=== PATIENT | female | born 1960 | race American Indian/Alaskan Native ===

== ENCOUNTER 2017-04-13 22:07 | Emergency (ER) | payer SELFPAY ==
[2017-04-13 23:12] VITALS: BP 148/111
[2017-04-13] MEDS ORDERED: Bacitracin Oint 1 GM U/D Packet TOP ONE (23:17)
--- NOTE | 2017-04-14 00:05 | EDM.PDOC ---
ED HPI GENERAL MEDICAL PROBLEM - General Chief Complaint: Upper Extremity Injury/Pain Stated Complaint: CUT HAND Time Seen by Provider: 04/13/17 23:12 Source of Information: Reports: Patient History Limitations: Reports: No Limitations - History of Present Illness INITIAL COMMENTS - FREE TEXT/NARRATIVE: laceration to right hand; this is a 56 y/o female while at work this evening, was closing a oven door when she got cut on a thin strip of metal on the door. reports last TD 2 years ago Employer; [employer], location; [facility]. 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 Treatments (applied pressure and place on a dressing and glove to control bleeding) - Related Data Allergies Allergy/AdvReac Type Severity Reaction Status Date / Time Sulfa (Sulfonamide Allergy Hives Verified 05/29/16 06:49 Antibiotics) Home Meds: Home Meds Albuterol [Proair HFA] 1 - 2 puff INH Q4H PRN 05/20/16 [History] Cetirizine [ZyrTEC] 10 mg PO DAILY 05/25/16 [History] Past Medical History HEENT History: Reports: Impaired Vision Respiratory History: Reports: Bronchitis, Recurrent, Sleep Apnea, SOB Gastrointestinal History: Reports: Diverticulosis, Other (See Below) Other Gastrointestinal History: Bloody stools Genitourinary History: Reports: Renal Calculus [place] History: Reports: 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, Musculoskeletal History: Reports: Arthritis, Fracture, Osteoarthritis Psychiatric History: Reports: Anxiety, Depression Endocrine/Metabolic History: Reports: Obesity/BMI 30+ - Infectious Disease History Infectious Disease History: Reports: Influenza Other Infectious Disease History: unknown - Past Surgical History Head Surgeries/Procedures: Reports: None Endocrine Surgical History: Reports: None Musculoskeletal Surgical History: Reports: Shoulder Surgery, Other (See Below) Dermatological Surgical History: Reports: None Social & Family History - Family History Family Medical History: Noncontributory - Tobacco Use Smoking Status *Q: Light Tobacco Smoker Years of Tobacco use: 30 Packs/Tins Daily: 0.5 Used Tobacco, but Quit: No Second Hand Smoke Exposure: Yes - Caffeine Use Caffeine Use: Reports: Coffee - Alcohol Use Days Per Week of Alcohol Use: 1 Number of Drinks Per Day: 2 Total Drinks Per Week: 2 - Recreational Drug Use Recreational Drug Use: No - Living Situation & Occupation Living situation: Reports: Single, with Family Occupation: Employed Review of Systems - Review of Systems Review Of Systems: See Below Constitutional: Reports: Other (hand laceration) Skin: Reports: Wound ED EXAM, GENERAL - Physical Exam Exam: See Below Exam Limited By: No Limitations General Appearance: Alert, WD/WN, No Apparent Distress Skin Exam: Warm, Dry, Wound/Incision Lymphatic: No Adenopathy ED TRAUMA EXTREMITY PROCEDURES - Laceration/Wound Repair Right Posterior Hand Lac/Wound Length In cm: 1.5 Appearance: Subcutaneous Distal NVT: Neuro & Vascular Intact, No Tendon Injury Anesthetic Type: Digital Local Anesthesia - Lidocaine (Xylocaine): 1% Plain Local Anesthetic Volume: 1cc Skin Prep: Chlorhexidine (Hibiciens) Exploration/Debridement/Repair: Wound Explored Closed With: Sutures Suture Size: other (5-0) # of Sutures: 3 Suture Type: Prolene, Interrupted, Simple Drain Placement: No Sterile Dressing Applied: Nurse Tetanus Status Addressed: Yes Complications: No Course - Vital Signs Last Recorded V/S: Last Vital Signs Temp 36.6 C 04/13/17 23:11 Pulse 78 04/13/17 23:11 Resp 20 04/13/17 23:11 BP 148/111 H 04/13/17 23:11 Pulse Ox 98 04/13/17 23:11 - Orders/Labs/Meds Meds: Medications Discontinued Medications Generic Name Dose Route Start Last Admin Trade Name Jean Carlos PRN Reason Stop Dose Admin Bacitracin 1 dose 04/13/17 23:17 04/13/17 23:55 Bacitracin Oint 1 Gm TOP 04/13/17 23:18 1 dose ONETIME ONE Administration Lidocaine HCl 5 ml 04/13/17 23:16 04/13/17 23:54 Xylocaine-Mpf 1% INJECT 04/13/17 23:17 5 ml ONETIME ONE Administration Departure - Departure Time of Disposition: 00:07 Disposition: Home, Self-Care 01 Condition: Good Clinical Impression: Laceration of hand, right Qualifiers: Encounter type: initial encounter Foreign body presence: without foreign body Qualified Code(s): S61.411A - Laceration without foreign body of right hand, initial encounter - Discharge Information Instructions: Laceration Care, Adult, [id number] Referrals: PCP,None [Primary Care Provider] - Forms: ED Department Discharge Care Plan Goals: laceration repair to right hand -suture removal in 7 to 10 days -keflex 500mg po two times a day for 7 days -hydrocodone 5-325mg take one eveyr 4 to 6 hrs for pain #4 -monitor for signs of infection return to clinic or er if not improved or symptoms worsen. - Problem List & Annotations (1) Laceration of hand, right SNOMED Code(s): 248113651 Code(s): S61.411A - LACERATION WITHOUT FOREIGN BODY OF RIGHT HAND, INIT ENCNTR Status: Acute Priority: High Qualifiers: Encounter type: initial encounter Foreign body presence: without foreign body Qualified Code(s): S61.411A - Laceration without foreign body of right hand, initial encounter - Problem List Review Problem List Initiated/Reviewed/Updated: Yes - Assessment/Plan Plan: laceration repair to right hand -suture removal in 7 to 10 days -keflex 500mg po two times a day for 7 days -hydrocodone 5-325mg take one eveyr 4 to 6 hrs for pain #4 -monitor for signs of infection return to clinic or er if not improved or symptoms worsen.
== END 2017-04-14 00:07 | disposition home or self-care (01) ==
LOC: JP.ED 22:07
DX: S61.411A Laceration without foreign body of right hand, initial encounter (principal); F17.210 Nicotine dependence, cigarettes, uncomplicated; M19.90 Unspecified osteoarthritis, unspecified site; H54.7 Unspecified visual loss; Z87.442 Personal history of urinary calculi; F41.9 Anxiety disorder, unspecified; F32.9 Major depressive disorder, single episode, unspecified; E66.9 Obesity, unspecified; Z98.890 Other specified postprocedural states; Z79.899 Other long term (current) drug therapy; Z88.2 Allergy status to sulfonamides; Z68.32 Body mass index [BMI] 32.0-32.9, adult; W26.8XXA Contact with other sharp object(s), not elsewhere classified, initial encounter
CPT/HCPCS: 12001; 99283-25

== ENCOUNTER 2017-06-18 17:31 | Emergency (ER) | payer SELFPAY ==
[2017-06-18 18:11] VITALS: BP 150/88
[2017-06-18] MEDS ORDERED: Ketorolac 60 MG/2 ML SDV IM ONE (18:13)
--- NOTE | 2017-06-18 18:21 | EDM.PDOC ---
ED HPI GENERAL MEDICAL PROBLEM - General Chief Complaint: Back Pain or Injury Stated Complaint: PAIN IN BACK Time Seen by Provider: 06/18/17 17:55 Source of Information: Reports: Patient History Limitations: Reports: No Limitations - History of Present Illness INITIAL COMMENTS - FREE TEXT/NARRATIVE: Jess presents today with complaints of acute low back pain since 06/06/17. She reports she fell while walkig down her deck steps, landed backwards onto steps striking low back on porch. She denies numbness/tingling, change in bowel and bladder habits or function. Onset Date: 06/06/17 Duration: Day(s):, Getting Worse Location: Reports: Back Quality: Reports: Ache, Throbbing Severity: Severe Improves with: Reports: None Worsens with: Reports: Movement Associated Symptoms: Reports: No Other Symptoms Treatments LATHE TENDER: Reports: Acetaminophen back Pain Score (Numeric/FACES): 10 - Related Data Allergies Allergy/AdvReac Type Severity Reaction Status Date / Time Sulfa (Sulfonamide Allergy Hives Verified 06/18/17 17:57 Antibiotics) Home Meds: Home Meds Albuterol [Proair HFA] 1 - 2 puff INH Q4H PRN 05/20/16 [History] metFORMIN [Glucophage] 500 mg PO DAILY 06/18/17 [History] Past Medical History HEENT History: Reports: Impaired Vision Respiratory History: Reports: Bronchitis, Recurrent, Sleep Apnea, SOB Gastrointestinal History: Reports: Diverticulosis, Other (See Below) Other Gastrointestinal History: Bloody stools Genitourinary History: Reports: Renal Calculus 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: 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, Musculoskeletal History: Reports: Arthritis, Fracture, Osteoarthritis Psychiatric History: Reports: Anxiety, Depression Endocrine/Metabolic History: Reports: Obesity/BMI 30+ - Infectious Disease History Infectious Disease History: Reports: Influenza Other Infectious Disease History: unknown - Past Surgical History Head Surgeries/Procedures: Reports: None Endocrine Surgical History: Reports: None Musculoskeletal Surgical History: Reports: Shoulder Surgery, Other (See Below) Dermatological Surgical History: Reports: None Social & Family History - Family History Family Medical History: Noncontributory - Tobacco Use Smoking Status *Q: Light Tobacco Smoker Years of Tobacco use: 30 Packs/Tins Daily: 0.5 Used Tobacco, but Quit: No Second Hand Smoke Exposure: Yes - Caffeine Use Caffeine Use: Reports: Coffee - Alcohol Use Days Per Week of Alcohol Use: 1 Number of Drinks Per Day: 2 Total Drinks Per Week: 2 - Recreational Drug Use Recreational Drug Use: No - Living Situation & Occupation Living situation: Reports: Single, with Family Occupation: Employed ED ROS GENERAL - Review of Systems Review Of Systems: See Below Constitutional: Denies: Fever, Chills, Malaise, Weakness, Fatigue, Night Sweats , Diaphoresis HEENT: Reports: No Symptoms Respiratory: Denies: Shortness of Breath, Wheezing, Cough, Sputum, Hemoptysis Endocrine: Reports: No Symptoms GI/Abdominal: Reports: No Symptoms : Reports: No Symptoms Musculoskeletal: Reports: Back Pain, Other (Decrease in range of motion. ) Skin: Denies: Cyanosis, Bruising, Rash, Erythema, Wound, Lesions Neurological: Denies: Headache, Numbness, Seizure, Syncope, Tingling, Weakness, Gait Disturbance Psychiatric: Reports: No Symptoms Hematologic/Lymphatic: Reports: No Symptoms Immunologic: Reports: No Symptoms ED EXAM,LOWER BACK PAIN/INJURY - Physical Exam Exam: See Below Exam Limited By: No Limitations General Appearance: Alert, WD/WN, Moderate Distress Eye Exam: Bilateral Eye: EOMI, PERRL Ears: Normal External Exam, Normal Canal, Hearing Grossly Normal, Normal TMs Nose: Normal Inspection, Normal Mucosa, No Blood Throat/Mouth: Normal Inspection, Normal Lips, Normal Teeth, Normal Gums, Normal Oropharynx, Normal Voice, No Airway Compromise Head: Atraumatic, Normocephalic Neck: Normal Inspection, Supple, Non-Tender, Full Range of Motion. No: Lymphadenopathy (R), Lymphadenopathy (L), Tender Lateral, Tender Midline Respiratory/Chest: No Respiratory Distress, Lungs Clear, Normal Breath Sounds, No Accessory Muscle Use, Chest Non-Tender Cardiovascular: Normal Peripheral Pulses, Regular Rate, Rhythm, No Edema, No Gallop, No Murmur, No Rub GI/Abdominal: Normal Bowel Sounds, Soft, Non-Tender, No Organomegaly, No Distention, No Abnormal Bruit Back Exam: Normal Inspection, Decreased Range of Motion, Muscle Spasm. No: CVA Tenderness (R), CVA Tenderness (L), Paraspinal Tenderness, Vertebral Tenderness Extremities: Normal Inspection, Normal Range of Motion, Non-Tender, No Pedal Edema, Normal Capillary Refill Neurological: Alert, Normal Mood/Affect, Normal Dorsiflexion, CN II-XII Intact, Normal Plantar Flexion, Normal Gait, Normal Reflexes, Oriented x 3 DTR - Lower Extremities: 2+: Knee (R), Knee (L) Psychiatric: Normal Affect, Normal Mood Skin Exam: Warm, Dry, Intact, Normal Color, No Rash Lymphatic: No Adenopathy Course - Vital Signs Last Recorded V/S: Last Vital Signs Temp 37.2 C 06/18/17 17:55 Pulse 96 06/18/17 17:55 Resp 16 06/18/17 17:55 BP 150/88 H 06/18/17 17:55 Pulse Ox 96 06/18/17 17:55 - Orders/Labs/Meds Orders: Active Orders 24 hr Category Date Time Status Lumbar Spine 2 or 3V [CR] Stat Exams 06/18/17 18:13 Taken Meds: Medications Discontinued Medications Generic Name Dose Route Start Last Admin Trade Name Freq PRN Reason Stop Dose Admin Ketorolac Tromethamine 60 mg 06/18/17 18:13 06/18/17 18:16 Toradol IM 06/18/17 18:14 60 mg ONETIME ONE Administration - Radiology Interpretation Free Text/Narrative:: X-rays wet read, reviewed, no acute findings. Radiologist read pending. - Re-Assessments/Exams Free Text/Narrative Re-Assessment/Exam: 06/18/17 19:17 Patient reports some pain relief after use of toradol IM. She was informed of x-ray results, she is in agreement with plan. Jess understands importance for follow up of back pain and any changes. Departure - Departure Time of Disposition: 19:11 Disposition: Home, Self-Care 01 Condition: Good Clinical Impression: Lumbar spine strain, SI (sacroiliac) joint inflammation - Discharge Information Referrals: Hortencia Serna NP [Primary Care Provider] - Forms: ED Department Discharge Additional Instructions: Take ibuprofen 800mg three times a day with food for pain. You can also take acetaminophen 1000mg three times a day as needed for pain. Use of ultram/tramadol one tablet three times a day for break through pain. Cyclobenzaprine as directed for muscle spasms. Follow up in [place] in the next 10 to 14 days for recheck. Return for worsening, issues or concerns. - My Orders Last 24 Hours: My Active Orders 06/18/17 18:13 Lumbar Spine 2 or 3V [CR] Stat - Assessment/Plan Last 24 Hours: My Active Orders 06/18/17 18:13 Lumbar Spine 2 or 3V [CR] Stat Assessment:: Lumbar strain SI joint inflammation Plan: Take ibuprofen 800mg three times a day with food for pain. She can also take acetaminophen 1000mg three times a day as needed for pain. Use of ultram/tramadol one tablet three times a day for break through pain. Cyclobenzaprine as directed for muscle spasms. Follow up in [place] in the next 10 to 14 days for recheck. Return for worsening, issues or concerns.
--- NOTE | 2017-06-19 10:42 | CR ---
5 lumbar type vertebral bodies. Facet arthropathy lower lumbar spine. Disc height loss L5-S1. Dural b hawa heights are maintained. Renal calculi.
== END 2017-06-18 19:38 | disposition home or self-care (01) ==
LOC: JP.ED 17:31
DX: S33.5XXA Sprain of ligaments of lumbar spine, initial encounter (principal); M46.1 Sacroiliitis, not elsewhere classified; F17.210 Nicotine dependence, cigarettes, uncomplicated; M19.90 Unspecified osteoarthritis, unspecified site; Z68.31 Body mass index [BMI] 31.0-31.9, adult; E66.9 Obesity, unspecified; Z79.890 Hormone replacement therapy; Z79.899 Other long term (current) drug therapy; Z88.2 Allergy status to sulfonamides; W10.8XXA Fall (on) (from) other stairs and steps, initial encounter
CPT/HCPCS: 72100; 96372; 99284; J1885; 99283

== ENCOUNTER 2019-01-31 00:52 | Emergency (ER) | payer SELFPAY ==
--- NOTE | 2019-01-31 01:41 | EDM.PDOC ---
ED HPI GENERAL MEDICAL PROBLEM - General Chief Complaint: Chest Pain Stated Complaint: MEDICAL VIA [facility]TH Time Seen by Provider: 01/31/19 01:40 Source of Information: Reports: Patient History Limitations: Reports: No Limitations - History of Present Illness INITIAL COMMENTS - FREE TEXT/NARRATIVE: pt has a history of drinking multiple shots of whiskey daily. She has a history of elevated liver enymes. She knows that her bs have been high but she has not been checking the sugar s. Onset: Today, Other ( she had ther feeling that her heart was racing. ) Duration: Hour(s): Location: Reports: Chest Associated Symptoms: Reports: Other (pt did have some pain in her rt arm and she felt like her heart was racing. ) Right Hip Pain Score (Numeric/FACES): 6 - Related Data Allergies Allergy/AdvReac Type Severity Reaction Status Date / Time Sulfa (Sulfonamide Allergy Hives Verified 06/14/18 04:16 Antibiotics) Home Meds: Home Meds Acetaminophen 650 mg PO Q4HR PRN 06/14/18 [History] Past Medical History HEENT History: Reports: Impaired Vision Cardiovascular History: Reports: Hypertension, Other (See Below) Other Cardiovascular History: thinks she has had atrial flutter about 10-11 years ago Respiratory History: Reports: Bronchitis, Recurrent, Sleep Apnea, SOB Gastrointestinal History: Reports: Diverticulosis, Other (See Below) Other Gastrointestinal History: Bloody stools Genitourinary History: Reports: Renal Calculus 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: Reports: 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, Other 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: removed uterus and ovaries per 3 surgeries Musculoskeletal History: Reports: Arthritis, Fracture, Osteoarthritis Psychiatric History: Reports: Anxiety, Depression Endocrine/Metabolic History: Reports: Obesity/BMI 30+ - Infectious Disease History Infectious Disease History: Reports: Chicken Pox Other Infectious Disease History: unknown - Past Surgical History Head Surgeries/Procedures: Reports: None Female Surgical History: Reports: Lithotripsy/ESWL Endocrine Surgical History: Reports: None Dermatological Surgical History: Reports: None Social & Family History - Family History Family Medical History: Noncontributory - Tobacco Use Smoking Status *Q: Current Every Day Smoker Years of Tobacco use: 30 Packs/Tins Daily: 0.2 - Caffeine Use Caffeine Use: Reports: Coffee Other Caffeine Use: 1 cup in am - Alcohol Use Days Per Week of Alcohol Use: 7 Number of Drinks Per Day: 4 Total Drinks Per Week: 28 Date of Last Drink: 01/31/19 Time of Last Drink: 00:00 - Recreational Drug Use Recreational Drug Use: No - Living Situation & Occupation Living situation: Reports: Single, with Family Occupation: Employed ED ROS GENERAL - Review of Systems Review Of Systems: See Below Constitutional: Reports: No Symptoms HEENT: Reports: No Symptoms Respiratory: Reports: No Symptoms Cardiovascular: Reports: Palpitations, Other ( when her heart was fast she felt slightly tight in her chest. ) Endocrine: Reports: No Symptoms GI/Abdominal: Reports: No Symptoms, Other ( she does have some tenderness over her liver) : Reports: No Symptoms Musculoskeletal: Reports: No Symptoms ED EXAM, GENERAL - Physical Exam Exam: See Below Free Text/Narrative:: pt had a episode where she felt like her heart was racing. She had some pain in her rt arm. She has been drinking fairly heavily. Exam Limited By: No Limitations General Appearance: Alert, Mild Distress Ears: Normal TMs Nose: Normal Inspection Throat/Mouth: Normal Inspection Head: Atraumatic Neck: Normal Inspection Respiratory/Chest: No Respiratory Distress Cardiovascular: Regular Rate, Rhythm, Other (pt was not fast when she was being evaluated. ) GI/Abdominal: Soft, Non-Tender (Female) Exam: Deferred Rectal (Female) Exam: Deferred Back Exam: Normal Inspection Extremities: Normal Inspection Neurological: Alert, Oriented, Normal Cognition Psychiatric: Depressed Mood Course - Vital Signs Last Recorded V/S: Last Vital Signs Temp 35.8 C 01/31/19 00:57 Pulse 76 01/31/19 02:47 Resp 15 01/31/19 02:47 BP 147/80 H 01/31/19 02:47 Pulse Ox 94 L 01/31/19 02:47 - Orders/Labs/Meds Labs: Laboratory Tests 01/31/19 01/31/19 01/31/19 Range/Units 01:41 01:54 01:54 WBC (4.5-11.0) K/uL RBC (3.30-5.50) M/uL Hgb (12.0-15.0) g/dL Hct (36.0-48.0) % MCV (80-98) fL MCH (27-31) pg MCHC (32-36) % Plt Count (150-400) K/uL Neut % (Auto) (36-66) % Lymph % (Auto) (24-44) % [place] % (Auto) (2-6) % Eos % (Auto) (2-4) % Baso % (Auto) (0-1) % Sodium (140-148) mmol/L Potassium (3.6-5.2) mmol/L Chloride (100-108) mmol/L Carbon Dioxide (21-32) mmol/L Anion Gap (5.0-14.0) mmol/L BUN (7-18) mg/dL Creatinine (0.6-1.0) mg/dL Est Cr Clr Drug Dosing mL/min Estimated GFR (MDRD) (>60) Glucose (74-106) mg/dL Calcium (8.5-10.1) mg/dL Magnesium (1.8-2.4) mg/dL Total Bilirubin (0.2-1.0) mg/dL AST (15-37) U/L ALT (12-78) U/L Alkaline Phosphatase (46-116) U/L Troponin I < 0.017 (0.000-0.056) ng/mL Total Protein (6.4-8.2) g/dL Albumin (3.4-5.0) g/dL Globulin (2.3-3.5) g/dL Albumin/Globulin Ratio (1.2-2.2) Lipase (73-393) U/L Urine Color Yellow Urine Appearance Clear Urine pH 5.0 (4.5-8.0) Ur Specific [employer] 1.010 (1.008-1.030) Urine Protein Negative (NEGATIVE) mg/dL Urine Glucose (UA) 250 H (NEGATIVE) mg/dL Urine Ketones Negative (NEGATIVE) mg/dL Urine Occult Blood Large (NEGATIVE) Urine Nitrite Negative (NEGATIVE) Urine Bilirubin Negative (NEGATIVE) Urine Urobilinogen Normal (NORMAL) mg/dL Ur Leukocyte Esterase Negative (NEGATIVE) Urine RBC 5-10 H (0-5) Urine WBC Not seen (0-5) Ur Epithelial Cells Few Amorphous Sediment Not seen Urine Bacteria Not seen Urine Mucus Not seen Ethyl Alcohol 184 mg/dL 01/31/19 01/31/19 01/31/19 Range/Units 01:54 01:54 02:00 WBC 6.3 (4.5-11.0) K/uL RBC 4.87 (3.30-5.50) M/uL Hgb 14.9 (12.0-15.0) g/dL Hct 46.6 (36.0-48.0) % MCV 96 (80-98) fL MCH 31 (27-31) pg MCHC 32 (32-36) % Plt Count 137 L (150-400) K/uL Neut % (Auto) 37 (36-66) % Lymph % (Auto) 51 H (24-44) % York % (Auto) 8 H (2-6) % Eos % (Auto) 4 (2-4) % Baso % (Auto) 1 (0-1) % Sodium 144 (140-148) mmol/L Potassium 3.4 L (3.6-5.2) mmol/L Chloride 107 (100-108) mmol/L Carbon Dioxide 23 (21-32) mmol/L Anion Gap 17.4 H (5.0-14.0) mmol/L BUN 12 (7-18) mg/dL Creatinine 0.6 (0.6-1.0) mg/dL Est Cr Clr Drug Dosing 79.85 mL/min Estimated GFR (MDRD) > 60 (>60) Glucose 280 H (74-106) mg/dL Calcium 9.6 (8.5-10.1) mg/dL Magnesium (1.8-2.4) mg/dL Total Bilirubin 0.1 L (0.2-1.0) mg/dL AST 55 H D (15-37) U/L ALT 105 H (12-78) U/L Alkaline Phosphatase 148 H (46-116) U/L Troponin I (0.000-0.056) ng/mL Total Protein 7.4 (6.4-8.2) g/dL Albumin 3.9 (3.4-5.0) g/dL Globulin 3.5 (2.3-3.5) g/dL Albumin/Globulin Ratio 1.1 L (1.2-2.2) Lipase 377 (73-393) U/L Urine Color Urine Appearance Urine pH (4.5-8.0) Ur Specific [employer] (1.008-1.030) Urine Protein (NEGATIVE) mg/dL Urine Glucose (UA) (NEGATIVE) mg/dL Urine Ketones (NEGATIVE) mg/dL Urine Occult Blood (NEGATIVE) Urine Nitrite (NEGATIVE) Urine Bilirubin (NEGATIVE) Urine Urobilinogen (NORMAL) mg/dL Ur Leukocyte Esterase (NEGATIVE) Urine RBC (0-5) Urine WBC (0-5) Ur Epithelial Cells Amorphous Sediment Urine Bacteria Urine Mucus Ethyl Alcohol mg/dL 01/31/19 Range/Units 02:23 WBC (4.5-11.0) K/uL RBC (3.30-5.50) M/uL Hgb (12.0-15.0) g/dL Hct (36.0-48.0) % MCV (80-98) fL MCH (27-31) pg MCHC (32-36) % Plt Count (150-400) K/uL Neut % (Auto) (36-66) % Lymph % (Auto) (24-44) % York % (Auto) (2-6) % Eos % (Auto) (2-4) % Baso % (Auto) (0-1) % Sodium (140-148) mmol/L Potassium (3.6-5.2) mmol/L Chloride (100-108) mmol/L Carbon Dioxide (21-32) mmol/L Anion Gap (5.0-14.0) mmol/L BUN (7-18) mg/dL Creatinine (0.6-1.0) mg/dL Est Cr Clr Drug Dosing mL/min Estimated GFR (MDRD) (>60) Glucose (74-106) mg/dL Calcium (8.5-10.1) mg/dL Magnesium 1.7 L (1.8-2.4) mg/dL Total Bilirubin (0.2-1.0) mg/dL AST (15-37) U/L ALT (12-78) U/L Alkaline Phosphatase (46-116) U/L Troponin I (0.000-0.056) ng/mL Total Protein (6.4-8.2) g/dL Albumin (3.4-5.0) g/dL Globulin (2.3-3.5) g/dL Albumin/Globulin Ratio (1.2-2.2) Lipase (73-393) U/L Urine Color Urine Appearance Urine pH (4.5-8.0) Ur Specific [employer] (1.008-1.030) Urine Protein (NEGATIVE) mg/dL Urine Glucose (UA) (NEGATIVE) mg/dL Urine Ketones (NEGATIVE) mg/dL Urine Occult Blood (NEGATIVE) Urine Nitrite (NEGATIVE) Urine Bilirubin (NEGATIVE) Urine Urobilinogen (NORMAL) mg/dL Ur Leukocyte Esterase (NEGATIVE) Urine RBC (0-5) Urine WBC (0-5) Ur Epithelial Cells Amorphous Sediment Urine Bacteria Urine Mucus Ethyl Alcohol mg/dL Meds: Medications Discontinued Medications Generic Name Dose Route Start Last Admin Trade Name Freq PRN Reason Stop Dose Admin Insulin Human Regular 3 unit 01/31/19 02:57 Humulin R SUBCUT 01/31/19 02:58 ONETIME ONE - Re-Assessments/Exams Free Text/Narrative Re-Assessment/Exam: 01/31/19 03:09 pt had elevated liver enzymes, her trop was neg. Her rhythm while in ER was stabe. Her bs was 280. She was given 3 units of insulin subq. Departure - Departure Time of Disposition: 02:58 Disposition: Home, Self-Care 01 Condition: Fair Clinical Impression: Hyperglycemia, Palpitations Referrals: PCP,None [Primary Care Provider] - Forms: ED Department Discharge Care Plan Goals: check bs at home regularly and keep a record, watch diet closely, schedule pt to have a 48 hour holter monitor. Pt should be seen in [facility] next week if bs is consistently high.
[2019-01-31] MEDS ORDERED: Insulin Regular, Human 100 Units/ML 3 ML Vial SUBCUT ONE (02:57)
[2019-01-31 08:33] VITALS: BP 128/73
== END 2019-01-31 08:00 | disposition home or self-care (01) ==
LOC: JP.ED 00:52
DX: R73.9 Hyperglycemia, unspecified (principal); R00.2 Palpitations; I10 Essential (primary) hypertension; E66.9 Obesity, unspecified; F17.210 Nicotine dependence, cigarettes, uncomplicated; Z88.2 Allergy status to sulfonamides
CPT/HCPCS: 36415; 80053; 81001; 83690; 83735; 84484; 85025; 99284; G0480; J1815

== ENCOUNTER 2019-03-29 10:30 | Emergency (ER) | payer SELFPAY ==
[2019-03-29 10:56] VITALS: BP 174/63
[2019-03-29] MEDS ORDERED: cefTRIAXone 1 GM Vial IM ONE (11:15)
--- NOTE | 2019-03-29 11:16 | EDM.PDOC ---
ED HPI GENERAL MEDICAL PROBLEM - General Chief Complaint: Skin Complaint Stated Complaint: RASH ON RT ARM, BLISTERS ON HANDS Time Seen by Provider: 03/29/19 11:00 Source of Information: Reports: Patient History Limitations: Reports: No Limitations - History of Present Illness INITIAL COMMENTS - FREE TEXT/NARRATIVE: 58 yo female presents to the emergency room with and exacerbation of chronic rash she has on her left arm. She also complains of fever, body aches and lesions on bilateral hands and in mouth. this AM she developed lesions on perineal. - Related Data Allergies Allergy/AdvReac Type Severity Reaction Status Date / Time Sulfa (Sulfonamide Allergy Hives Verified 03/29/19 10:53 Antibiotics) Home Meds: Home Meds Acetaminophen 650 mg PO Q4HR PRN 06/14/18 [History] Past Medical History HEENT History: Reports: Impaired Vision Cardiovascular History: Reports: Hypertension, Other (See Below) Other Cardiovascular History: thinks she has had atrial flutter about 10-11 years ago Respiratory History: Reports: Bronchitis, Recurrent, Sleep Apnea, SOB Gastrointestinal History: Reports: Diverticulosis, Other (See Below) Other Gastrointestinal History: Bloody stools Genitourinary History: Reports: Renal Calculus 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: 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, Other SONAR WATCHSTANDER History: removed uterus and ovaries per 3 surgeries Musculoskeletal History: Reports: Arthritis, Fracture, Osteoarthritis Psychiatric History: Reports: Anxiety, Depression Endocrine/Metabolic History: Reports: Obesity/BMI 30+ - Infectious Disease History Infectious Disease History: Reports: Chicken Pox Other Infectious Disease History: unknown - Past Surgical History Head Surgeries/Procedures: Reports: None Female Surgical History: Reports: Lithotripsy/ESWL Endocrine Surgical History: Reports: None Dermatological Surgical History: Reports: None Social & Family History - Family History Family Medical History: Noncontributory - Tobacco Use Smoking Status *Q: Current Every Day Smoker Years of Tobacco use: 30 Packs/Tins Daily: 0.3 - Caffeine Use Caffeine Use: Reports: Coffee Other Caffeine Use: 1 cup in am - Living Situation & Occupation Living situation: Reports: Single, with Family Occupation: Employed ED ROS GENERAL - Review of Systems Review Of Systems: See Below Constitutional: Reports: Fever, Chills, Malaise, Fatigue HEENT: Denies: Rhinitis, Sinus Problem Respiratory: Denies: Shortness of Breath, Wheezing Cardiovascular: Denies: Chest Pain GI/Abdominal: Denies: Abdominal Pain Skin: Reports: Rash ED EXAM, SKIN/RASH Exam: See Below Exam Limited By: No Limitations General Appearance: Alert, WD/WN, No Apparent Distress Ears: Normal External Exam, Normal Canal, Hearing Grossly Normal, Normal TMs Nose: Normal Inspection, Normal Mucosa, No Blood Throat/Mouth: Other (2 lesions/vesicles on right posterior oral pharynx) Head: Atraumatic, Normocephalic Neck: Supple, Lymphadenopathy (R), Lymphadenopathy (L) Respiratory/Chest: No Respiratory Distress, Lungs Clear, Normal Breath Sounds, No Accessory Muscle Use, Chest Non-Tender Cardiovascular: Normal Peripheral Pulses, Regular Rate, Rhythm, No Edema Skin: Warm, Dry, Intact, Rash (left arm weeping open rash with surrounding erythema and mild edema. She also has multipl vesivles to bilateral hands on palms) Course - Vital Signs Last Recorded V/S: Last Vital Signs Temp 34.9 C L 03/29/19 10:59 Pulse 59 L 03/29/19 10:59 Resp 18 03/29/19 10:59 BP 174/63 H 03/29/19 10:59 Pulse Ox 96 03/29/19 10:59 - Orders/Labs/Meds Meds: Medications Discontinued Medications Generic Name Dose Route Start Last Admin Trade Name Jean Carlos PRN Reason Stop Dose Admin Ceftriaxone Sodium 1 gm 03/29/19 11:15 Rocephin IM 03/29/19 11:16 ONETIME ONE Departure - Departure Time of Disposition: 11:31 Disposition: Home, Self-Care 01 Condition: Good Clinical Impression: Hand, foot and mouth disease Cellulitis Qualifiers: Site of cellulitis: extremity Site of cellulitis of extremity: upper extremity Laterality: left Qualified Code(s): L03.114 - Cellulitis of left upper limb - Discharge Information *PRESCRIPTION DRUG MONITORING PROGRAM REVIEWED*: Not Applicable *COPY OF PRESCRIPTION DRUG MONITORING REPORT IN PATIENT SANDIE: Not Applicable Instructions: Psoriasis, [id number] Referrals: PCP,None [Primary Care Provider] - Forms: ED Department Discharge Additional Instructions: prednisone 20 mg 2 tablets for 4 days then 1 tablet for 3 days you received shot of Rocephin antibiotics in the ER today wash arm with warm soapy water pat dry cover with think layer of Aquifer then wrap with nonsticking bandage gargle with warm salty water for pain control of mouth and throat lesions no work until 24 hours post non suppressed fever
== END 2019-03-29 12:11 | disposition home or self-care (01) ==
LOC: JP.ED 10:30
DX: B08.4 Enteroviral vesicular stomatitis with exanthem (principal); L03.114 Cellulitis of left upper limb; I10 Essential (primary) hypertension; F17.210 Nicotine dependence, cigarettes, uncomplicated; Z88.2 Allergy status to sulfonamides
CPT/HCPCS: 96372; 99282; J0696; 99283

== ENCOUNTER 2021-07-06 01:32 | Emergency (ER) | payer SELFPAY ==
[2021-07-06 02:04] VITALS: BP 119/59; PULSE 78
--- NOTE | 2021-07-06 02:14 | EDM.PDOC ---
ED HPI GENERAL MEDICAL PROBLEM - General Chief Complaint: Lower Extremity Injury/Pain Stated Complaint: LEFT ANKLE INJURY Time Seen by Provider: 07/06/21 01:40 Source of Information: Reports: Patient, EMS History Limitations: Reports: No Limitations - History of Present Illness INITIAL COMMENTS - FREE TEXT/NARRATIVE: 61-year-old female, injured her left ankle while walking on level ground. She just "turned wrong". She is fairly intoxicated. No other injury, she is developed pain and swelling over the lateral aspect of the left ankle. She is unable to bear weight. 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 Other Treatments MORTAR MIXER OPERATOR: Fentanyl 100mcg, NS Left Ankle Pain Score (Numeric/FACES): 5 - Related Data Allergies Allergy/AdvReac Type Severity Reaction Status Date / Time Sulfa (Sulfonamide Allergy Hives Verified 07/06/21 01:36 Antibiotics) Home Meds: Home Meds Citalopram [Citalopram HBr] 20 mg PO DAILY 07/06/21 [History] Meloxicam 15 mg PO DAILY 07/06/21 [History] Omeprazole 20 mg PO DAILY 07/06/21 [History] Tolterodine Tartrate [Tolterodine Tartrate ER] 2 mg PO DAILY 07/06/21 [History] atorvaSTATin [Lipitor] 20 mg PO BEDTIME 07/06/21 [History] lisinopriL [Lisinopril] 2.5 mg PO DAILY 07/06/21 [History] metFORMIN [Glucophage] 500 mg PO BIDMEALS 07/06/21 [History] Past Medical History HEENT History: Reports: Impaired Vision Cardiovascular History: Reports: Hypertension, Other (See Below) Other Cardiovascular History: thinks she has had atrial flutter about 10-11 years ago Respiratory History: Reports: Bronchitis, Recurrent, Sleep Apnea, SOB Gastrointestinal History: Reports: Diverticulosis, Other (See Below) Other Gastrointestinal History: Bloody stools Genitourinary History: Reports: Renal Calculus 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: Reports: 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, Other 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: removed uterus and ovaries per 3 surgeries Musculoskeletal History: Reports: Arthritis, Fracture, Osteoarthritis Psychiatric History: Reports: Anxiety, Depression Endocrine/Metabolic History: Reports: Obesity/BMI 30+ - Infectious Disease History Infectious Disease History: Reports: Chicken Pox, Novel Coronavirus Other Infectious Disease History: unknown - Past Surgical History Head Surgeries/Procedures: Reports: None HEENT Surgical History: Reports: None Respiratory Surgical History: Reports: None GI Surgical History: Reports: Appendectomy, Colonoscopy Female Surgical History: Reports: Lithotripsy/ESWL Endocrine Surgical History: Reports: None Musculoskeletal Surgical History: Reports: Shoulder Surgery, Other (See Below) Other Musculoskeletal Surgeries/Procedures:: Right ankle fx surgery Dermatological Surgical History: Reports: None Social & Family History - Family History Family Medical History: No Pertinent Family History - Tobacco Use Tobacco Use Status *Q: Current Every Day Tobacco User Years of Tobacco use: 45 Packs/Tins Daily: 0.2 - Caffeine Use Caffeine Use: Reports: Coffee Other Caffeine Use: 1 cup in am - Alcohol Use Days Per Week of Alcohol Use: 7 Number of Drinks Per Day: 4 Total Drinks Per Week: 28 - Recreational Drug Use Recreational Drug Use: No - Living Situation & Occupation Living situation: Reports: Single, with Family Occupation: Employed Review of Systems - Review of Systems Review Of Systems: See Below Constitutional: Denies: Fever Mouth/Throat: Reports: No Symptoms Respiratory: Reports: No Symptoms Cardiovascular: Reports: No Symptoms GI/Abdominal: Denies: Nausea, Vomiting Genitourinary: Reports: No Symptoms Skin: Reports: Bruising (Slight bruising is developing over the lateral ankle) Neurological: Denies: Paresthesia ED EXAM, GENERAL - Physical Exam Exam: See Below Exam Limited By: Intoxication General Appearance: Alert, No Apparent Distress (Uncomfortable but not distressed) Eye Exam: Bilateral Eye: Normal Inspection Head: Atraumatic Neck: Supple, Non-Tender Respiratory/Chest: Lungs Clear Cardiovascular: Regular Rate, Rhythm Extremities: Other (Exam is otherwise limited to the lower extremities. She has well-healed scars over the ankle on the right side, no tenderness or injury. The left ankle has swelling and ecchymosis over the lateral aspect and intense pain with palpation of the distal fibula.) Neurological: Alert, Oriented Psychiatric: Other (Fairly intoxicated) Course - Vital Signs Last Recorded V/S: Last Vital Signs Temp 98.1 F 07/06/21 01:33 Pulse 78 07/06/21 01:33 Resp 18 07/06/21 01:33 BP 119/59 L 07/06/21 01:33 Pulse Ox 93 L 07/06/21 01:33 - Orders/Labs/Meds Orders: Active Orders 24 hr Category Date Time Status Ankle Min 3V Lt [CR] Stat Exams 07/06/21 01:33 Taken DME for Discharge [COMM] Stat Oth 07/06/21 02:05 Ordered - Re-Assessments/Exams Free Text/Narrative Re-Assessment/Exam: 07/06/21 02:44 X-ray was obtained that showed a minimally displaced spiral fracture of the distal fibula on the left side. Patient refused a cam walker, so a posterior splint was applied to the foot and she was given crutches. Also given 10 hydrocodone for extra pain control. She is to use the crutches to avoid weightbearing on the left foot until she can be seen by orthopedics in [place], she is going to call the clinic tomorrow morning for an appointment. The images were sent to [facility] so they will be available to the orthopedic providers. Departure - Departure Time of Disposition: 02:30 Disposition: Home, Self-Care 01 Clinical Impression: Closed left fibular fracture Qualifiers: Encounter type: initial encounter Fibula location: distal Fracture morphology: other fracture Qualified Code(s): S82.832A - Other fracture of upper and lower end of left fibula, initial encounter for closed fracture - Discharge Information Instructions: Tibial and Fibular Fractures, Crutch Use, Adult Referrals: PCP,None [Primary Care Provider] - Forms: ED Department Discharge Care Plan Goals: Elevate foot when able, use crutches to get around and leave splint on your foot until you are rechecked by orthopedics in [place]. Give them a call tomorrow to get a clinic appointment, they should have the x-rays available on their computers to review. Take ibuprofen for pain and add the stronger pain medication as directed if needed. Sepsis Event Note (ED) - Evaluation Sepsis Screening Result: No Definite Risk - Focused Exam Vital Signs: Vital Signs Temp Pulse Resp BP Pulse Ox 07/06/21 01:33 98.1 F 78 18 119/59 L 93 L - My Orders Last 24 Hours: My Active Orders 07/06/21 01:33 Ankle Min 3V Lt [CR] Stat 07/06/21 02:05 DME for Discharge [COMM] Stat - Assessment/Plan Last 24 Hours: My Active Orders 07/06/21 01:33 Ankle Min 3V Lt [CR] Stat 07/06/21 02:05 DME for Discharge [COMM] Stat
--- NOTE | 2021-07-06 09:20 | CR ---
Ankle Min 3V Lt CLINICAL HISTORY: Injury FINDINGS: The soft tissues are swollen laterally. There is an oblique fracture of the distal fibula. Ankle mortise appears intact Impression: Fracture distal fibula
== END 2021-07-06 02:31 | disposition home or self-care (01) ==
LOC: JP.ED 01:32
DX: S82.832A Other fracture of upper and lower end of left fibula, initial encounter for closed fracture (principal); Y93.01 Activity, walking, marching and hiking; I10 Essential (primary) hypertension; M19.90 Unspecified osteoarthritis, unspecified site; E66.9 Obesity, unspecified; Z72.0 Tobacco use; Z68.32 Body mass index [BMI] 32.0-32.9, adult; Z88.2 Allergy status to sulfonamides; X50.9XXA Other and unspecified overexertion or strenuous movements or postures, initial encounter
CPT/HCPCS: 29515; 73610-26-LT; 73610-LT; 99284-25